=== PATIENT | female | born 1955 | race African-American/Black ===

== ENCOUNTER 2016-09-02 09:41 | Day surgery (SDC) | payer MEDICARE ==
[~2016-09-02] VITALS: Ht 208.3 cm; Wt 92.7 kg
[~2016-09-02 09:41] MED LIST: COREG6.25 MG PO; COUMADIN7.5 MG PO; LANOXIN125 MCG PO; NEPHRO-VITE RX1 TAB PO; PROTONIX40 MG PO; SYNTHROID200 MC1 PO; TUMS500 MG PO; UNKNOWN BP MED
[2016-09-02 10:29] VITALS: BP 154/80; Ht 208.3 cm; Wt 92.7 kg
[2016-09-02 10:49] LABS: HEMATOCRIT 37.4 % (36.0-48.0); HEMOGLOBIN 11.8 g/dL (12-16); MCH 28.2 pg (26.0-34.0); MCHC 31.6 g/dL (31.0-37.0); MCV 89.3 fL (80.0-100.0); MEAN PLATELET VOLUME 10.5 fL (7.4-10.4); RBC 4.19 10x6/uL (4.00-5.40); RDW 16.1 % (11.5-14.5)
[2016-09-02 11:09] LABS: ANION GAP 16.6 mmol/L (8-16); APTT 37.8 SECONDS (22.8-39.4); CALCIUM 8.2 mg/dL (8.5-10.1); CARBON DIOXIDE 29.4 mmol/L (21.0-32.0); CREATININE - SERUM 9.1 mg/dL (0.6-1.3); INR 1.05 (0.85-1.17); PROTIME 13.6 SECONDS (11.6-15.0)
--- NOTE | 2016-09-03 13:06 | OP ---
PATIENT NAME: BLANQUITA TELLEZ MEDICAL RECORD: [id number] :57 LOCATION:D.[facility] ADMISSION DATE: SURGEON: JUANCARLOS COATES DO OPERATION DATE: 09/02/16 DATE OF OPERATION: 09/02/2016 DATE OF PROCEDURE: 09/02/2016 PROCEDURE: EGD with biopsies. INDICATIONS FOR PROCEDURE: Fecal occult blood positive and history vascular ectasia of the gastric antrum. SCOPE: [employer] video gastroscope. MEDICATIONS: Propofol 140 mg IV per anesthesia. ESTIMATED BLOOD LOSS: Minimal. COMPLICATIONS: None. FINDINGS: Informed consent was given. The patient was made comfortable with the above medication. After reaching an adequate level of sedation by slow IV push, the patient was placed on her left side. The endoscope was then advanced under direct visualization through the mouth to the third portion of the duodenum. The upper, middle, and lower thirds of the esophagus appeared normal. At the GE junction, there was some mild evidence of LA class A reflux-induced esophagitis. The endoscope was advanced beyond the GE junction into the stomach and retroflexed to view the cardia, where a small sliding hiatal hernia was present. In the fundus and body of the stomach, there was some congested-appearing mucosa. In the antrum and prepyloric region, there were approximately 5 areas of very small angioectasia/AVMs present. There was no bleeding stigmata. Random biopsies were taken in the stomach including the sites where the congested mucosa was present. These were collected to rule out H. pylori and to submit for histology. The endoscope was advanced beyond the pylorus into the duodenum where there was some granularity and atrophy within the bulb and second portion of the duodenum. Random biopsies were taken to submit for histology. The scope was then withdrawn from the patient. The patient tolerated the procedure well and there were no complications. IMPRESSION: 1. LA class A reflux-induced esophagitis. 2. Small sliding hiatal hernia. 3. Congested gastric mucosa. 4. 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 5. Granularity and atrophy of the duodenal mucosa, random biopsies taken. PLAN AND RECOMMENDATIONS: 1. Discharge home when recovery parameters are met. 2. Follow up on biopsy specimens. 3. Continue omeprazole, but increased to 40 mg daily times 6 weeks. After that time, it may be decreased back to 20 mg daily. 4. Recommend colonoscopy regarding the fecal occult blood, positive test. OPERATIVE REPORT [id number] BLANQUITA TELLEZ 5. Follow up in clinic as needed. TRANSINT:[id number] Voice Confirmation ID: [id number] DOCUMENT ID: [id number] JUANCARLOS COATES DO at 1306 CC: [id number] DICTATION DATE: 09/02/16 1238 SEAT BUILDER: 09/02/16 2135 [facility] 09/02/16 [id number] [place] [address]
== END 2016-09-02 14:05 | disposition home or self-care (01) ==
LOC: D.OPS 09:41
PROVIDERS: Anesthesiology
DX: K21.0 Gastro-esophageal reflux disease with esophagitis (principal); K44.9 Diaphragmatic hernia without obstruction or gangrene; K31.89 Other diseases of stomach and duodenum; Q27.33 Arteriovenous malformation of digestive system vessel; Z01.812 Encounter for preprocedural laboratory examination

== ENCOUNTER 2016-10-19 10:26 | Day surgery (SDC) | payer MEDICARE ==
[~2016-10-19] VITALS: Ht 157.5 cm; Wt 90.0 kg
[2016-10-19 12:56] VITALS: BP 125/54; Ht 157.5 cm; Wt 90.0 kg
[2016-10-19 13:04] LABS: HEMATOCRIT 37.7 % (36.0-48.0); HEMOGLOBIN 11.8 g/dL (12-16); MCH 28.8 pg (26.0-34.0); MCHC 31.3 g/dL (31.0-37.0); MEAN PLATELET VOLUME 10.1 fL (7.4-10.4); RBC 4.1 10x6/uL (4.00-5.40); WBC 5.1 10x3/uL (4.8-10.8)
[2016-10-19 13:25] LABS: APTT 27.7 SECONDS (22.8-39.4); INR 1.09 (0.85-1.17)
--- NOTE | 2016-10-20 07:19 | OP ---
PATIENT NAME: BLANQUITA TELLEZ MEDICAL RECORD: [id number] :57 LOCATION:D.OPS ADMISSION DATE: SURGEON: JUANCARLOS COATES DO DATE OF OPERATION: 10/19/2016 PROCEDURE: Colonoscopy with polypectomy. INDICATIONS FOR PROCEDURE: Hemoccult positive stools. SCOPE: [employer] video pediatric colonoscope. MEDICATIONS: Propofol 220 mg IV per anesthesia. WITHDRAWAL TIME: 11 minutes. ESTIMATED BLOOD LOSS: Minimal. COMPLICATIONS: None. FINDINGS: Informed consent was given. The patient was made comfortable with the above medication. After reaching an adequate level of sedation by slow IV push, the patient was placed on her left side. A digital rectal examination was performed and was normal. The endoscope was then advanced under direct visualization through the rectum to the right side of the colon where a colonic/ileal anastomosis was encountered. The patient does have a history of ischemic colitis, status post right hemicolectomy. The anastomotic area appeared unremarkable. The scope was slowly withdrawn and mucosa was carefully examined. Quality of the prep was good. There were 4 polyps visualized on this examination, they were all located in the sigmoid colon. It measured 3-6 mm in diameter. Two of the polyps were removed in 1 piece using a hot snare and completely retrieved and the other 2 smaller polyps were ablated using the tip of the snare. These polyps were hemorrhagic-appearing and could have potentially contributed to a positive Hemoccult, but I doubt that they play a role in the anemia. There was evidence of left-sided colonic diverticulosis which was mild. There was no evidence of bleeding or inspection. Retroflexion was performed in the rectum with visualization of small nonbleeding internal hemorrhoids. The endoscope was then withdrawn from the patient. The patient tolerated the procedure well and there were no complications. IMPRESSIONS: 1. Four polyps located in the sigmoid colon. Two of these polyps were removed with hot snare and the other two were ablated. 2. Left-sided mild diverticulosis without bleeding or diverticulitis. 3. Small nonbleeding internal hemorrhoids. 4. Anemia with hemoccult positive stools are most likely secondary to intermittent bleeding from gastric angioectasia/arteriovenous malfunctions. PLAN AND RECOMMENDATIONS: 1. Discharge home when recovery parameters are met. 2. Follow up biopsy specimen results. 3. Renal diet. 4. Continue current medications. 5. Recall colonoscopy in 3 to 5 years pending nature of polyp histopathology. 6. The patient's labs indicate that she has thrombocytopenia, red blood cell anemia, which is not microcytic and is borderline leukopenia. Consider bone OPERATIVE REPORT [id number] BLANQUITA TELLEZ marrow examination to rule out myelodysplastic syndrome. TRANSINT:[id number] Voice Confirmation ID: [id number] DOCUMENT ID: [id number] JUANCARLOS COATES DO at 0719 CC: [id number] DICTATION DATE: 10/19/16 1536 SONG PLUGGER: 10/19/16 2308 [facility] 10/19/16 [facility] [address] [place] [address]
== END 2016-10-19 16:22 | disposition home or self-care (01) ==
LOC: D.OPS 10:26
PROVIDERS: Anesthesiology
DX: D12.5 Benign neoplasm of sigmoid colon (principal); K64.8 Other hemorrhoids; D64.9 Anemia, unspecified; F17.200 Nicotine dependence, unspecified, uncomplicated; I25.10 Atherosclerotic heart disease of native coronary artery without angina pectoris; E03.9 Hypothyroidism, unspecified; Z95.5 Presence of coronary angioplasty implant and graft; K21.9 Gastro-esophageal reflux disease without esophagitis; I12.9 Hypertensive chronic kidney disease with stage 1 through stage 4 chronic kidney disease, or unspecified chronic kidney disease; N18.9 Chronic kidney disease, unspecified

== ENCOUNTER → 2017-12-21 13:10 | Outpatient (CLI) | payer MEDICARE ==
[2016-10-19 12:56] VITALS: BMI 36.3
[~2017-12-21 13:10] MED LIST changes: +ATARAX 25 MG TA25 MG PO
== END | disposition home or self-care (01) ==
LOC: D.CT 13:00
DX: R10.9 Unspecified abdominal pain (principal)

== ENCOUNTER 2018-01-13 07:36 | Outpatient (CLI) | payer MEDICARE ==
[~2018-01-13] VITALS: Ht 157.5 cm; Wt 97.3 kg
[~2018-01-13 07:36] MED LIST changes: -ATARAX 25 MG TA25 MG PO
[2018-01-13 08:06] LABS: BASOPHILS 0.2 % (0-2); EOSINOPHILS 4.5 % (0-7); HEMATOCRIT 25.4 % (36.0-48.0); HEMOGLOBIN 8.3 g/dL (12-16); IMMATURE GRANULOCYTES 0.4 % (0-5); LYMPHOCYTES 18.1 % (15-50); MCH 27.6 pg (26.0-34.0); MCHC 32.7 g/dL (31.0-37.0); MCV 84.4 fL (80.0-100.0); MEAN PLATELET VOLUME 9.2 fL (7.4-10.4); MONOCYTES 6.3 % (2-11); NEUTROPHILS 70.5 % (40-80); PLATELET COUNT 159 10x3/uL (130-400); RBC 3.01 10x6/uL (4.00-5.40); RDW 17.2 % (11.5-14.5); WBC 4.9 10x3/uL (4.8-10.8)
[2018-01-13 08:22] LABS: ANION GAP 23.8 mmol/L (8-16); CALCIUM 7.5 mg/dL (8.5-10.1); CARBON DIOXIDE 22.7 mmol/L (21.0-32.0); CREATININE - SERUM 5.8 mg/dL (0.6-1.3); POTASSIUM - SERUM 3.5 mmol/L (3.5-5.1)
[2018-01-13 08:24] LABS: APTT 32.6 SECONDS (22.8-39.4); INR 1.25 (0.85-1.17); PROTIME 15.2 SECONDS (11.6-15.0)
[2018-01-13] MEDS ORDERED: ATARAX 25 MG TA25 MG PO (08:29)
[2018-01-13 08:38] VITALS: BP 148/72; Ht 157.5 cm; Wt 97.3 kg
== END 2018-01-13 16:00 | disposition home or self-care (01) ==
LOC: D.SP 07:36 → D.CT 09:00 → D.SP 16:00
PROVIDERS: Specialist
DX: D64.9 Anemia, unspecified (principal)

== ENCOUNTER 2019-01-17 22:30 | Emergency (ER) | payer MEDICARE ==
[~2019-01-17] VITALS: Ht 157.5 cm; Wt 89.5 kg
[~2019-01-17 22:30] MED LIST changes: +ATARAX 25 MG TA25 MG PO
[2019-01-17 22:36] VITALS: Ht 157.5 cm; Wt 89.5 kg
[2019-01-18 00:58] VITALS: BP 150/85
== END 2019-01-18 01:14 | disposition home or self-care (01) ==
LOC: D.ER 22:30
DX: S46.912A Strain of unspecified muscle, fascia and tendon at shoulder and upper arm level, left arm, initial encounter (principal); Y33.XXXA Other specified events, undetermined intent, initial encounter; I12.0 Hypertensive chronic kidney disease with stage 5 chronic kidney disease or end stage renal disease; N18.6 End stage renal disease; Z99.2 Dependence on renal dialysis; Z95.5 Presence of coronary angioplasty implant and graft; K21.9 Gastro-esophageal reflux disease without esophagitis

== ENCOUNTER 2019-07-11 10:11 | Outpatient (CLI) | payer MEDICARE ==
[~2019-07-11] VITALS: Ht 157.5 cm; Wt 89.1 kg
[2019-07-11 11:14] VITALS: BP 138/80; Ht 157.5 cm; Wt 89.1 kg
--- NOTE | 2019-07-11 11:33 | NUR ---
1" COLLINS NEEDLE USED TO ACCESS INFUSAPORT, POSITIVE FOR BLOOD RETURN. FLUSHED WITH 20 CC NS SALINE, FOLLOWED BY HEPARIN FLUSH. REMOVED WITH TIP INTACT. DISCHARGE INSTRUCTIONS PROVIDED AND WHEELED OUT
== END 2019-07-11 11:22 | disposition home or self-care (01) ==
LOC: D.OPS 10:11
PROVIDERS: ATTEND Internal Medicine Nephrology
DX: Z95.9 Presence of cardiac and vascular implant and graft, unspecified (principal)

== ENCOUNTER 2019-09-19 10:50 | Outpatient (CLI) | payer MEDICARE ==
[~2019-09-19] VITALS: Ht 157.5 cm; Wt 89.1 kg
[2019-09-19 11:18] VITALS: BP 124/69; Ht 157.5 cm; Wt 89.1 kg
--- NOTE | 2019-09-19 11:40 | NUR ---
PORT ACCESSED AT THIS TIME, POSITIVE BLOOD RETURN. PT FLUSHED WITH SALINE AND HEPARIN FLUSH. AFTER FLUSH, SITE DRESSED WITH GAUZE AND TEGADERM. NO ACUTE DISTRESS NOTED.
--- NOTE | 2019-09-19 11:45 | NUR ---
PT LEAVING OPS AT THIS TIME VIA WC, NAD NOTED.
== END 2019-09-19 11:45 | disposition home or self-care (01) ==
LOC: D.OPS 10:50
PROVIDERS: ATTEND Internal Medicine Nephrology
DX: Z95.9 Presence of cardiac and vascular implant and graft, unspecified (principal)